=== PATIENT | male | born 1965 | race African-American/Black ===

== ENCOUNTER 2020-09-22 11:51 | Emergency (ER) | payer MEDICAID ==
[~2020-09-22] VITALS: Ht 177.8 cm; Wt 75.0 kg
[2020-09-22] MEDS ORDERED: CALCIUM GLUCONATE 100MG/ML 10ML VIAL IV ONE (12:15)
[2020-09-22 12:41] LABS: CHLORIDE 104 mEq/L (98-107)
[2020-09-22 12:49] LABS: HEMATOCRIT. 39.1 % (42.0-52.0); HEMOGLOBIN. 13.9 g/dL (14.0-18.0); MEAN CORPUSCULAR HEMOGLOBIN 31.4 pg (28.0-32.0); MEAN CORPUSCULAR VOLUME 88.2 fL (80.0-94.0); PLATELET 175 x1000/uL (130-400); RED BLOOD CELL COUNT 4.43 mill/uL (4.7-6.1); RED CELL DISTRIBUTION WIDTH 13.3 % (11.6-14.6)
[2020-09-22] MEDS ORDERED: SODIUM CHLORIDE 0.9% 1,000 ML IV ONE (13:15)
[2020-09-22] MEDS ORDERED: ONDANSETRON HCL 4MG/2ML INJ IV NR (13:15)
[2020-09-22 13:33] LABS: PLATELET ESTIMATE NORMAL
[2020-09-22 15:44] LABS: CLARITY URINE CLEAR (CLEAR); COLOR URINE DARK YELLOW (YELLOW); KETONES URINE NEGATIVE (NEGATIVE); LEUKOCYTE ESTERASE URINE NEGATIVE (NEGATIVE); NITRITE URINE NEGATIVE (NEGATIVE); OCCULT BLOOD URINE 2+ (NEGATIVE); PROTEIN URINE 1+ (NEGATIVE); SPECIFIC GRAVITY URINE 1.018 (1.005-1.030)
[2020-09-22] MEDS ORDERED: TRAMADOL HCL/ACETAMINOPHEN 37.5/325MG TABLET PO NR (17:30)
[2020-09-22] MEDS ORDERED: CIPR-263 MT (19:33)
[2020-09-22] MEDS ORDERED: IMOD MT (19:34)
[2020-09-22] MEDS ORDERED: TRAM-529 MT (19:37)
[2020-09-22 19:49] VITALS: BP 149/77
== END 2020-09-22 19:52 | disposition home or self-care (01) ==
LOC: ER 11:51
DX: A09 Infectious gastroenteritis and colitis, unspecified (principal)
CPT/HCPCS: 36415; 71045; 80053; 81003; 83880; 84484; 85025; 93005; 96361; 96374; 99285; J0610; J2405